=== PATIENT | female | born 1995 | race Caucasian/White ===

== ENCOUNTER → 2023-04-24 08:33 | Outpatient (CLI) | payer OTHER, SELFPAY ==
[2023-04-24 20:09] LABS: Add Manual Diff / Slide Review NO; Basophils Absolute Auto 0 /uL (0-100); Basophils Percent Auto 0.5 % (0-2); Eosinophils Absolute Auto 100 /uL (0-450); Eosinophils Percent Auto 0.9 % (2-4); Hemoglobin 13.5 g/dL (12.0-16.0); Lymphocytes Absolute Auto 2700 /uL (1100-4500); Lymphocytes Percent Auto 37.6 % (25-40); Mean Corpuscular HGB Conc 34.7 % (30-36); Mean Corpuscular Hemoglobin 29.5 PG (26-34); Mean Corpuscular Volume 85.2 fL (80-100); Monocytes Absolute Auto 600 /uL (0-900); Monocytes Percent Auto 8.5 % (3-14); Neutrophils Absolute Auto 3700 /uL (1500-7000); Neutrophils Percent Auto 52.5 % (50-75); Platelet Count 178 X10^3/uL (150-400); Red Blood Cell Count 4.58 X10^6/uL (4.0-5.2); Red Cell Distribution Width 12.4 % (11.6-14.8); White Blood Cell Count 7.1 X10^3/uL (4.5-11.0)
[2023-04-24 20:42] LABS: TSH w/ Reflex to FT4 1.22 uIU/mL (0.47-4.68)
== END ==
PROVIDERS: PCP Physician Assistant; Visit Provider Physician Assistant
DX: R22.1 Localized swelling, mass and lump, neck (principal)
CPT/HCPCS: 84443; 85025

== ENCOUNTER → 2023-05-01 16:22 | Outpatient (CLI) | payer OTHER, SELFPAY ==
--- NOTE | 2023-05-01 16:24 | DI.US.S_ITS ---
PROCEDURE: US SOFT TISSUE HEAD AND NECK INDICATIONS: NECK MASS TECHNIQUE: Real-time scanning was performed of the neck region of interest, with image documentation. COMPARISON: None. FINDINGS: Targeted ultrasound of the right submandibular neck. There is a large anechoic cyst measuring of 4.3 x 3.8 x 3.2 cm. The cyst is circumscribed. There is debris within the cyst. No internal vascularity. The abnormality is palpated by the patient. No surrounding hyperemia. IMPRESSION: Large anechoic cyst in the right submandibular region measuring 4.3 cm. Reports that this was previously drained in 2019. Dictated by: Aaron Koo M.D. on 05/01/2023 at 17:11 Approved by: Aaron Koo M.D. on 05/01/2023 at 17:13
== END ==
PROVIDERS: PCP Physician Assistant; Referring Provider Physician Assistant; Visit Provider Physician Assistant
DX: R22.1 Localized swelling, mass and lump, neck (principal)
CPT/HCPCS: 76536

== ENCOUNTER → 2023-05-07 10:29 | Outpatient (CLI) | payer OTHER, SELFPAY ==
--- NOTE | 2023-05-07 10:30 | DI.CT.S_ITS ---
PROCEDURE: CT SOFT TISSUE NECK W CON INDICATIONS: 28-year-old female with 1 month history of right-sided neck mass TECHNIQUE: After the administration of intravenous contrast, 3.0 mm axial sections acquired from the sella to the aortic arch. Additional oblique axial 3.0 mm sections acquired through the pharynx. 3 mm thick coronal and sagittal reformats were generated. For radiation dose reduction, the following was used: automated exposure control. COMPARISON: None. FINDINGS: Image quality: Excellent. Lymph nodes: No enlarged lymph nodes seen throughout the neck. Vessels: Visualized vasculature appears patent. Neck spaces: The oropharynx, nasopharynx, and pharynx demonstrate no mucosal lesions. The vocal cords, false vocal cords, pyriform sinuses, epiglottis, vallecula, and tongue base all appear normal. Large cystic structure at the angle of the mandible on the right measures 3.9 x 3.5 x 3.6 cm with a thin enhancing capsule. Glands: The parotid and submandibular glands appear normal. Thyroid gland unremarkable. Miscellaneous: Visualized brain and orbits appear normal. Lung apices appear clear. Superficial soft tissues appear normal. Bones: No suspicious bony lesions. Visualized sinuses and mastoids appear unremarkable. 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 on 05/07/2023 at 12:02
== END ==
PROVIDERS: PCP Physician Assistant; Referring Provider Otolaryngology; Visit Provider Otolaryngology
DX: M27.40 Unspecified cyst of jaw (principal); M54.2 Cervicalgia
CPT/HCPCS: 70491; Q9967

== ENCOUNTER 2023-06-15 06:38 | Day surgery (SDC) | payer OTHER, SELFPAY ==
[2023-06-14 13:03] VITALS: BMI 34.9
[2023-06-15] VITALS (10 sets, daily range): BP systolic 101–124; BP diastolic 56–77; PULSE 75–98; RESP 14–20; TEMP 36.2–36.9; O2SAT 94–99; BMI 34.5
--- NOTE | 2023-06-15 | PATH_ITS ---
[facility] Accession Number: [id number] No. of containers..01 Tissue . 01 Material submitted: . neck - RIGHT NECK MASS . 01 Diagnosis: Right Neck, Excision: Pending outside expert consultation. MRV 06/23/2023 1307 Local . 01 Electronically signed: . Maribel Huggins MD, Dermatopathologist NPI- [id number] . 01 Gross description: . The specimen is received in formalin labeled with the patient's name, , and R. neck mass, and consists of an irregular, brown to gomez, roughened soft tissue fragment measuring 4.9 x 4.6 x 2.9 cm. The external surface is inked blue, and sectioning reveals a cystic structure measuring 2.7 cm in greatest dimension with thin, smooth matthews, and no excrescences identified. The cyst is filled with gomez, gelatinous purulent material. The remaining cut surface ranges from yellow to red-brown soft tissue. Feature Writer sections of both solid and cystic areas are submitted in cassettes A1-A3. ([id number]) . Previously sectioned into 10 slices, The specimen is submitted entirely as follows: . A4: Entire slice 1 perpendicular. A5: Entire slice 2. A6: Remaining slice 3. A7-A8: Entire composite slice 4. A9-A10: Remaining slice 5. A11: Remaining slice 6. A12-A13: Remaining slice 13. A14: Remaining slice 8. A15: Entire slice 9. A16: Slice 10 perpendicular. See diagram. ([id number]) /SATISH 06/23/2023 0413 Local . 01 Pathologist provided ICD-10: R22.1 . 01 CPT . 474746 Specimen Comment: A courtesy copy of this report has been sent to [phone] Performed at: 01 [facility] [address] [facility], [place], [place] [id number] MD Nima Lima MD Phone: [phone]
[2023-06-15] MEDS: LACTATED RINGERS 1,000 ML 42 ML IV ×2 (07:07→09:15)
--- NOTE | 2023-06-15 07:27 | PM.PREOP ---
Pre-operative Note Interval Note History & Physical reviewed/Exam performed by Physician: Yes Changes to H&P: No
--- NOTE | 2023-06-15 08:08 | SUR.OPER ---
Supine on padded OR bed, head on gel donut, towel roll between shoulders, right arm padded and tucked at the side, left arm on padded arm board <90 abducted, legs uncrossed, safety belt at thigh, tape over blanket over lower legs .
[2023-06-15] MEDS: LIDOCAINE 2% W/EPI INJ 20 ML INJ (08:11)
[2023-06-15] MEDS: AMPICILLIN/SULBACTAM 3 GM 3 GM in SODIUM CHLORIDE 0.9% 100 ML IV (08:59)
[2023-06-15] MEDS: BACITRACIN OINT 0.9 GM PCKT 4 APPLIC TOP (10:41)
--- NOTE | 2023-06-15 10:54 | P.OP_ITS ---
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 Following discussion of the material risks benefits complications and alternatives, the patient elected to proceed. Surgeon: Brady Irving Flight Controls Engineer: Peng Roberts Anesthesia Type: General and Local Operative Notes Findings: Inflamed greater than 5 cm irregular cyst, adherent to multiple structures primarily laterally, more medial surface with healthy tissue planes. Superficial lateral rupture initially with some purulence cultured, no other violation of the cyst, removed otherwise entirely intact. Cyst extended down to abut the anterior surface of the IJV, a portion of the carotid artery, submandibular gland and tail of the parotid. No obvious tract extending to the oropharynx. Specimen(s): other (Right deep neck mass, cyst) Estimated Blood Loss (mL): 30 Procedure in detail: Following identification and confirmation of consent as well as the operative side, patient was brought to the operating room suite and placed in the supine position. General endotracheal anesthesia was administered the table was turned right side out with the head turned to the left and shoulder roll placed. A proposed incision was marked in ink 2-3 fingerbreadths inferior to the mandible approximately 8 cm in length and infiltrated with 2% lidocaine 1 100,000 epinephrine. Following sterile prep and drape, a 15 blade incised the skin, subcutaneous tissue, and platysma. Subplatysmal flaps were elevated primarily superiorly but partially inferiorly. There was extensive scarring but eventually the anterior border of the SCM was identified and cleared. The cyst was identified medial and deep to the superior portion of the SCM although the surrounding tissue was markedly inflamed. There was inadvertent rupture but only laterally, and culture was taken. A portion of the greater auricular nerve required lysis for exposure. Primarily sharp dissection was required to delineate the edges of the cyst including at the tail of the parotid, posterior to the submandibular gland and inferiorly. Deeper dissection revealed less in flammation and better defined planes. Utilizing sharp and blunt dissection with bipolar cautery, the cyst was eventually peeled off of the anterior surface of the IJV as well as a portion of the carotid artery. No obvious tract was located extending towards the pharynx or hypopharynx. The specimen was removed, and a single probable facial vein required ligation during the dissection. The wound was irrigated with saline and a few small areas required bipolar cautery for hemostasis. The wound was then completely irrigated with Betadine. A Love drain, quarter-inch, was placed deep in the wound and extended out the inferior portion of the incision. The platysma was closed with interrupted 3-0 Vicryl followed by additional interrupted suture for the subcutaneous tissue and deep dermis, followed by running 5 0 nylon to the skin. Antibiotic ointment and dressing placed. Sponge and needle counts were correct and she was extubated in the operating room taken recovery room in stable condition without known complication. The admissions assistant with Dr. Roberts was indicated due to the extensive dissection required, the previous inflammation, and the nerve and vascular structures at risk in the operative field. Complications: other (Some incisional skin edge perez from cautery during the procedure) Post-operative Condition: stable Disposition: same day surgery Plan for aftercare: Change dressing as needed for the [place] drain. Polysporin to the incision at all times. Tylenol and Advil for pain control, oxycodone for breakthrough pain. Follow-up as scheduled next week for drain and suture removal. Due to the purulence within the cyst, I also recommend cephalexin 500 mg p.o. t.i.d. for 7 days.
[2023-06-15] MEDS: OXYCODONE IR 5 MG TABLET PO (11:53)
== END 2023-06-15 12:40 | disposition home or self-care (01) ==
PROVIDERS: PCP Physician Assistant; Referring Provider Otolaryngology; Visit Provider Otolaryngology
PROC: 0HB1XZZ Excision of Face Skin, External Approach (ICD-10-PCS; CPT 21554; principal; 2023-06-15 07:45)
DX: R22.1 Localized swelling, mass and lump, neck (principal); L02.11 Cutaneous abscess of neck
CPT/HCPCS: 21554; 87070; 87075; 87205; J0295; J1100; J1170; J2405; J2704; J3010